=== PATIENT | male | born 1965 | race Caucasian/White ===

== ENCOUNTER 2019-01-18 05:15 | Emergency (ER) | payer SELFPAY ==
[2019-01-18 05:15] VITALS: BP 132/76
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
[2019-01-18] MEDS ORDERED: TETANUS,DIPHTHERIA TOXD PED PF 0.5 ML VIAL. VAX IM ONE (06:00)
[2019-01-18] MEDS ORDERED: TETANUS AND DIPHTHERIA TOX/PF 0.5 ML VIAL. VAX IM ONE (06:00)
[2019-01-18] MEDS ORDERED: DIPHTH,PERTUSS(ACELL),TET TOX 0.5 ML DISP.SYRIN. VAX IM ONE (06:15)
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
[2019-01-18] MEDS ORDERED: ORPH-16 PO (07:04)
[2019-01-18] MEDS ORDERED: NEOMY/BACITR/POLYMYXIN OINT PACKET. TP ONE ×2 (07:15)
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
== END 2019-01-18 07:18 | disposition home or self-care (01) ==
LOC: ER 05:15
DX: S00.83XA Contusion of other part of head, initial encounter (principal); S80.12XA Contusion of left lower leg, initial encounter; F17.210 Nicotine dependence, cigarettes, uncomplicated; V89.2XXA Person injured in unspecified motor-vehicle accident, traffic, initial encounter; Y93.I9 Activity, other involving external motion; Y92.488 Other paved roadways as the place of occurrence of the external cause; Y99.8 Other external cause status
CPT/HCPCS: 70450; 70486; 71045; 72170; 73590; 90471; 90715; 99284-25